=== PATIENT | female | born 1930 | race Caucasian/White ===

== ENCOUNTER 2016-09-16 09:01 | Emergency (ER) | payer OTHER ==
[~2016-09-16] VITALS: Ht 152.4 cm; Wt 52.2 kg
[2016-09-16 09:01] VITALS: BP 116/65; PULSE 84; RESP 19; TEMP 97.4; O2SAT 96
--- NOTE | 2016-09-16 09:06 | NUR ---
Patient triaged and placed in waiting room. VSS and patient appears in no acute distress at this time. Accompanied by SON, awaiting available bed, and MD notified of need for MSE.
--- NOTE | 2016-09-16 10:05 | NUR ---
BROUGHT BACK TO BED #6 AND REPORT GIVEN TO GARCIA
--- NOTE | 2016-09-16 10:10 | NUR ---
ER at bedside examining patient.
--- NOTE | 2016-09-16 10:15 | NUR ---
Pt reports R arm pain s/p mech fall no syncope. Pt denies head or neck pain.Pt has decreased ROM,however pt able to move hand and fingers w/o loss sensation. Pt h/o osteoporosis and parkinson's. Pt AAOx4.
--- NOTE | 2016-09-16 10:30 | NUR ---
Pt tolerated Shoulder immobilizer.
[2016-09-16 10:45] VITALS: BP 116/65; PULSE 84; RESP 19; TEMP 97.4
[2016-09-16] MEDS ORDERED: IBUPROFEN 400 MG TABLET PO ONE (10:45)
--- NOTE | 2016-09-16 10:45 | NUR ---
Patient given written and verbal discharge instructions and verbalizes understanding. ER MD discussed with patient the results and treatment provided. Given copies of tests performed in ER. Patient in stable condition. ID arm band removed. Rx of norco given. Patient educated on pain management and to follow up with PMD. Pain Scale 3. Opportunity for questions provided and answered.
[2016-09-16 15:47] VITALS: O2SAT 96
== END 2016-09-16 10:45 | disposition home or self-care (01) ==
LOC: SED 09:01
DX: S42.291A Other displaced fracture of upper end of right humerus, initial encounter for closed fracture (principal); M81.0 Age-related osteoporosis without current pathological fracture; G20 Parkinson's disease; Z88.5 Allergy status to narcotic agent; W10.1XXA Fall (on)(from) sidewalk curb, initial encounter; Y93.89 Activity, other specified; Y92.89 Other specified places as the place of occurrence of the external cause; Y99.8 Other external cause status
CPT/HCPCS: 73030; 99284

== ENCOUNTER 2017-06-01 12:40 | Inpatient (IN) | payer OTHER ==
[~2017-06-01] VITALS: Ht 147.3 cm; Wt 47.2 kg
[2017-06-01 12:40] VITALS: BP_SYST 148
[2017-06-01] MEDS ORDERED: KETOROLAC TROMETHAMINE 30 MG VIAL IVP ONE (12:45)
[2017-06-01 13:02] LABS: BASOPHILS % (AUTO) 0.2 % (0.0-2.0); EOSINOPHILS % (AUTO) 0.3 % (0.0-4.0); HEMATOCRIT 34.3 % (36-48); HEMOGLOBIN 11.7 g/dL (12.0-16.0); LYMPHOCYTES # (AUTO) 0.7 K/uL (1.0-5.5); LYMPHOCYTES % (AUTO) 14.3 % (20.5-51.5); MEAN CORPUSCULAR HEMOGLOBIN 32 pg (27-31); MEAN CORPUSCULAR HGB CONC 34 % (32-36); MEAN CORPUSCULAR VOLUME 95 fL (79.0-98.0); MONOCYTES # (AUTO) 0.2 K/uL (0.0-1.0); MONOCYTES % (AUTO) 5.3 % (1.7-9.3); NEUTROPHILS # (AUTO) 3.7 K/uL (1.8-7.7); NEUTROPHILS % (AUTO) 79.9 % (40.0-70.0); PLATELET COUNT (AUTO) 187 K/uL (130-430); RED BLOOD CELL COUNT(AUTO) 3.61 MIL/uL (4.2-6.2); RED CELL DISTRIBUTION WIDTH 11.9 % (9.0-15.0); WHITE BLOOD COUNT (AUTO) 4.6 K/uL (4.8-10.8)
[2017-06-01] MEDS ORDERED: HYDR-3924 PO (13:09)
[2017-06-01] MEDS ORDERED: ALEN10TA6 PO (13:09)
[2017-06-01] MEDS ORDERED: CARB-61 PO (13:09)
[2017-06-01] MEDS ORDERED: ONDANSETRON HCL 4 MG/2 ML VIAL IVP ONE (13:30)
[2017-06-01] MEDS ORDERED: HYDROmorphone 1 MG INJ. 1 MG/ML AMPUL IVP ONE ×2 (13:30→13:45)
[2017-06-01 13:49] LABS: PROTHROMBIN TIME 10.4 SECS (9.5-12.5)
[2017-06-01 13:50] LABS: ALANINE AMINOTRANSFERASE 13 U/L (12-78); ALBUMIN 3.6 g/dL (3.4-4.8); ANION GAP 8 (5-15); ASPARTATE AMINOTRANSFERASE 19 U/L (10-37); CALCIUM 8.5 mg/dL (8.4-11.0); CHLORIDE 102 mmol/L (98-107); CREATININE 0.88 mg/dL (0.55-1.30); GLUCOSE 244 mg/dL (70-99); SODIUM SERUM 136 mmol/L (136-145); TOTAL BILIRUBIN 0.6 mg/dL (0.0-1.0); UREA NITROGEN, BLOOD 21 mg/dL (8-21)
[2017-06-01] MEDS ORDERED: HYDROmorphone 1 MG INJ. 1 MG/ML AMPUL IM PRN ×2 (14:30→16:45)
[2017-06-01] MEDS ORDERED: D5NS 500 ML IV ONE (14:30)
[2017-06-01 14:58] VITALS: BP_SYST 145
[2017-06-01] MEDS: CARBIDOPA/LEVODOPA 25/100 MG TABLET PO SCH ×2 (16:07→21:00)
[2017-06-01] MEDS ORDERED: ONDANSETRON HCL 4 MG/2 ML VIAL IM PRN (16:30)
[2017-06-01] MEDS: LR 1,000 ML IV SCH (18:00)
[2017-06-01] MEDS: HYDROmorphone 1 MG INJ. 1 MG/ML AMPUL IVP PRN (18:44)
[2017-06-01] MEDS ORDERED: ONDANSETRON HCL 4 MG/2 ML VIAL IVP PRN (19:00)
[2017-06-01 20:00] VITALS: BP_SYST 130
[2017-06-01] MEDS: DOCUSATE SODIUM 100 MG CAPSULE PO SCH (21:00)
[2017-06-02] VITALS (8 sets, daily range): BP systolic 110–143
[2017-06-02] MEDS: HYDROmorphone 1 MG INJ. 1 MG/ML AMPUL IVP PRN (02:05)
[2017-06-02] MEDS: LR 1,000 ML IV SCH ×4 (03:27→22:45)
[2017-06-02 06:25] LABS: ANION GAP 6 (5-15); CHLORIDE 102 mmol/L (98-107); CREATININE 0.91 mg/dL (0.55-1.30); GLUCOSE 113 mg/dL (70-99); POTASSIUM 4.2 mmol/L (3.5-5.1); SODIUM SERUM 137 mmol/L (136-145); UREA NITROGEN, BLOOD 22 mg/dL (8-21)
[2017-06-02 06:32] LABS: EOSINOPHILS % (AUTO) 0.1 % (0.0-4.0); HEMATOCRIT 28.2 % (36-48); HEMOGLOBIN 9.6 g/dL (12.0-16.0); LYMPHOCYTES # (AUTO) 0.6 K/uL (1.0-5.5); LYMPHOCYTES % (AUTO) 7.4 % (20.5-51.5); MEAN CORPUSCULAR HEMOGLOBIN 32 pg (27-31); MEAN CORPUSCULAR HGB CONC 34 % (32-36); MEAN CORPUSCULAR VOLUME 95 fL (79.0-98.0); MONOCYTES # (AUTO) 0.8 K/uL (0.0-1.0); MONOCYTES % (AUTO) 10.3 % (1.7-9.3); NEUTROPHILS # (AUTO) 6.8 K/uL (1.8-7.7); NEUTROPHILS % (AUTO) 82.2 % (40.0-70.0); PLATELET COUNT (AUTO) 160 K/uL (130-430); RED BLOOD CELL COUNT(AUTO) 2.97 MIL/uL (4.2-6.2); WHITE BLOOD COUNT (AUTO) 8.2 K/uL (4.8-10.8)
[2017-06-02] MEDS ORDERED: HYDROmorphone 1 MG INJ. 1 MG/ML AMPUL IVP ONE (08:30)
[2017-06-02 09:10] LABS: BILIRUBIN,URINE NEGATIVE (NEGATIVE); BLOOD, URINE NEGATIVE (NEGATIVE); CLARITY/URINE CLEAR (CLEAR); COLOR,URINE YELLOW (YELLOW); GLUCOSE,URINE NEGATIVE (NEGATIVE); KETONES,URINE NEGATIVE (NEGATIVE); LEUKOCYTE ESTERASE ,URINE 3+ (NEGATIVE); NITRITE, URINE NEGATIVE (NEGATIVE); PROTEIN URINE NEGATIVE (NEGATIVE); UROBILINOGEN,URINE 0.2 (0.2-1.0)
[2017-06-02] MEDS: CARBIDOPA/LEVODOPA 25/100 MG TABLET PO SCH ×3 (09:13→21:40)
[2017-06-02] MEDS: DOCUSATE SODIUM 100 MG CAPSULE PO SCH ×2 (09:13→21:00)
[2017-06-02 09:35] LABS: BACTERIA,URINE FEW /HPF (None Seen); MUCUS,URINE None Seen /LPF (None Seen); RBC,URINE 0-3 /HPF (0-3)
[2017-06-02] MEDS ORDERED: HYDROmorphone 1 MG INJ. 1 MG/ML AMPUL IM PRN (12:30)
[2017-06-02] MEDS ORDERED: POLYMYXIN 500,000/BACIT.10,000 UNITS in NS IRR 1 L IR ONE (14:26)
[2017-06-02] MEDS ORDERED: SEVOFLURANE 15 MIN GAS INH ONE (16:04)
[2017-06-02] MEDS ORDERED: ONDANSETRON HCL 4 MG/2 ML VIAL IVP ONE (16:04)
[2017-06-02] MEDS ORDERED: ROPIVACAINE 40 MG/20 ML AMP EP ONE (16:04)
[2017-06-02] MEDS ORDERED: LR 1,000 ML IV.SOLN IV ONE (16:04)
[2017-06-02] MEDS ORDERED: MIDAZOLAM HCL 5 MG/5 ML VIAL IVP ONE (16:04)
[2017-06-02] MEDS ORDERED: KETOROLAC TROMETHAMINE 30 MG VIAL IVP ONE (16:04)
[2017-06-02] MEDS ORDERED: CEFAZOLIN 2 GM IVPB PREMIX 50 ML IV ONE (16:04)
[2017-06-02] MEDS ORDERED: PROPOFOL 200MG/ 20ML VIAL (DIPRIVAN) IV ONE (16:04)
[2017-06-02] MEDS ORDERED: fentaNYL CITRATE/PF 100 MCG/2 ML AMP IVP ONE (16:04)
[2017-06-02] MEDS ORDERED: LR 1,000 ML IV SCH (17:10)
[2017-06-02] MEDS ORDERED: ePHEDrine sulfate 50 MG/ML VIAL IVP PRN (17:15)
[2017-06-02] MEDS ORDERED: ONDANSETRON HCL 4 MG/2 ML VIAL IVP PRN ×2 (17:15→18:30)
[2017-06-02] MEDS ORDERED: MEPERIDINE HCL/PF 25 MG/ML DISP.SYRIN IVP PRN ×2 (17:15)
[2017-06-02] MEDS ORDERED: SENNOSIDES 8.6 MG TABLET PO PRN (18:30)
[2017-06-02] MEDS ORDERED: ACETAMINOPHEN 325 MG TABLET PO PRN (18:30)
[2017-06-02] MEDS: HYDROmorphone 1 MG INJ. 1 MG/ML AMPUL IV PRN (19:57)
[2017-06-02 20:35] LABS: BASOPHILS % (AUTO) 0.1 % (0.0-2.0); EOSINOPHILS % (AUTO) 0.1 % (0.0-4.0); HEMATOCRIT 27.4 % (36-48); HEMOGLOBIN 9.4 g/dL (12.0-16.0); LYMPHOCYTES # (AUTO) 0.5 K/uL (1.0-5.5); LYMPHOCYTES % (AUTO) 3.6 % (20.5-51.5); MEAN CORPUSCULAR HEMOGLOBIN 33 pg (27-31); MEAN CORPUSCULAR HGB CONC 34 % (32-36); MEAN CORPUSCULAR VOLUME 95 fL (79.0-98.0); MONOCYTES # (AUTO) 0.2 K/uL (0.0-1.0); MONOCYTES % (AUTO) 1.5 % (1.7-9.3); NEUTROPHILS % (AUTO) 94.7 % (40.0-70.0); PLATELET COUNT (AUTO) 157 K/uL (130-430); RED BLOOD CELL COUNT(AUTO) 2.89 MIL/uL (4.2-6.2); RED CELL DISTRIBUTION WIDTH 12.1 % (9.0-15.0); WHITE BLOOD COUNT (AUTO) 13.7 K/uL (4.8-10.8)
[2017-06-02 20:50] LABS: ANION GAP 7 (5-15); CALCIUM 7.4 mg/dL (8.4-11.0); CHLORIDE 102 mmol/L (98-107); CREATININE 0.84 mg/dL (0.55-1.30); GLUCOSE 163 mg/dL (70-99); SODIUM SERUM 137 mmol/L (136-145); UREA NITROGEN, BLOOD 18 mg/dL (8-21)
[2017-06-02] MEDS: DIPHENHYDRAMINE HCL 25 MG CAPSULE PO PRN (21:40)
[2017-06-02] MEDS: CEFAZOLIN 1 GM IVPB PREMIX 50 ML IV SCH (21:48)
[2017-06-03] VITALS: BP_SYST 111
[2017-06-03 04:00] VITALS: BP_SYST 118
[2017-06-03] MEDS: CEFAZOLIN 1 GM IVPB PREMIX 50 ML IV SCH (05:05)
[2017-06-03 06:54] LABS: BASOPHILS % (AUTO) 0.1 % (0.0-2.0); HEMATOCRIT 23.9 % (36-48); HEMOGLOBIN 8.1 g/dL (12.0-16.0); LYMPHOCYTES # (AUTO) 0.5 K/uL (1.0-5.5); LYMPHOCYTES % (AUTO) 5.8 % (20.5-51.5); MEAN CORPUSCULAR HEMOGLOBIN 32 pg (27-31); MEAN CORPUSCULAR HGB CONC 34 % (32-36); MEAN CORPUSCULAR VOLUME 95 fL (79.0-98.0); MONOCYTES # (AUTO) 0.8 K/uL (0.0-1.0); MONOCYTES % (AUTO) 9.4 % (1.7-9.3); NEUTROPHILS # (AUTO) 7.7 K/uL (1.8-7.7); NEUTROPHILS % (AUTO) 84.7 % (40.0-70.0); PLATELET COUNT (AUTO) 149 K/uL (130-430); RED BLOOD CELL COUNT(AUTO) 2.53 MIL/uL (4.2-6.2); RED CELL DISTRIBUTION WIDTH 12.1 % (9.0-15.0)
[2017-06-03 07:25] LABS: ANION GAP 7 (5-15); CALCIUM 7.4 mg/dL (8.4-11.0); CHLORIDE 101 mmol/L (98-107); CREATININE 0.91 mg/dL (0.55-1.30); GLUCOSE 134 mg/dL (70-99); POTASSIUM 4.4 mmol/L (3.5-5.1); SODIUM SERUM 137 mmol/L (136-145); UREA NITROGEN, BLOOD 19 mg/dL (8-21)
[2017-06-03] MEDS: LR 1,000 ML IV SCH ×3 (07:45→18:45)
[2017-06-03] MEDS: HYDROmorphone 1 MG INJ. 1 MG/ML AMPUL IV PRN (08:40)
[2017-06-03 09:41] VITALS: BP_SYST 112
[2017-06-03] MEDS: DOCUSATE SODIUM 100 MG CAPSULE PO SCH ×2 (09:50→20:29)
[2017-06-03] MEDS: CARBIDOPA/LEVODOPA 25/100 MG TABLET PO SCH ×3 (09:50→20:29)
[2017-06-03] MEDS: DIPHENHYDRAMINE HCL 25 MG CAPSULE PO PRN (11:00)
[2017-06-03 12:19] VITALS: BP_SYST 114
[2017-06-03 16:22] VITALS: BP_SYST 108
[2017-06-03 20:00] VITALS: BP_SYST 145
[2017-06-04] VITALS (9 sets, daily range): BP systolic 118–159
[2017-06-04] MEDS: LR 1,000 ML IV SCH (05:00)
[2017-06-04 06:36] LABS: BASOPHILS % (AUTO) 0.1 % (0.0-2.0); EOSINOPHILS % (AUTO) 0.7 % (0.0-4.0); LYMPHOCYTES # (AUTO) 0.7 K/uL (1.0-5.5); LYMPHOCYTES % (AUTO) 12.7 % (20.5-51.5); MEAN CORPUSCULAR HEMOGLOBIN 33 pg (27-31); MEAN CORPUSCULAR HGB CONC 35 % (32-36); MEAN CORPUSCULAR VOLUME 95 fL (79.0-98.0); MONOCYTES # (AUTO) 0.6 K/uL (0.0-1.0); MONOCYTES % (AUTO) 11.5 % (1.7-9.3); NEUTROPHILS # (AUTO) 4.1 K/uL (1.8-7.7); PLATELET COUNT (AUTO) 110 K/uL (130-430); RED CELL DISTRIBUTION WIDTH 12.2 % (9.0-15.0); WHITE BLOOD COUNT (AUTO) 5.4 K/uL (4.8-10.8)
[2017-06-04 07:00] LABS: ANION GAP 5 (5-15); CALCIUM 7.4 mg/dL (8.4-11.0); CHLORIDE 104 mmol/L (98-107); CREATININE 0.73 mg/dL (0.55-1.30); GLUCOSE 112 mg/dL (70-99); POTASSIUM 3.9 mmol/L (3.5-5.1); SODIUM SERUM 137 mmol/L (136-145); UREA NITROGEN, BLOOD 19 mg/dL (8-21)
[2017-06-04 07:32] LABS: RED BLOOD CELL COUNT(AUTO) 1.98 MIL/uL (4.2-6.2)
[2017-06-04 07:34] LABS: HEMATOCRIT 18.7 % (36-48); HEMOGLOBIN 6.5 g/dL (12.0-16.0)
[2017-06-04] MEDS: CARBIDOPA/LEVODOPA 25/100 MG TABLET PO SCH ×3 (09:48→20:30)
[2017-06-04] MEDS: DOCUSATE SODIUM 100 MG CAPSULE PO SCH ×2 (09:48→20:30)
[2017-06-04] MEDS ORDERED: PSYLLIUM HUSK 1 PKT PACKET PO ONE (10:45)
[2017-06-04] MEDS ORDERED: FERROUS SULFATE 325 MG TABLET.DR PO ONE (10:45)
[2017-06-04] MEDS: PSYLLIUM HUSK 1 PKT PACKET PO SCH (20:30)
[2017-06-04] MEDS: FERROUS SULFATE 325 MG TABLET.DR PO SCH (20:30)
[2017-06-04 20:54] LABS: BASOPHILS # (AUTO) 0.1 K/uL (0.0-0.2); BASOPHILS % (AUTO) 1.6 % (0.0-2.0); EOSINOPHILS # (AUTO) 0.1 K/uL (0.0-0.4); EOSINOPHILS % (AUTO) 0.7 % (0.0-4.0); HEMATOCRIT 28.6 % (36-48); HEMOGLOBIN 9.6 g/dL (12.0-16.0); LYMPHOCYTES # (AUTO) 0.6 K/uL (1.0-5.5); MEAN CORPUSCULAR HEMOGLOBIN 32 pg (27-31); MEAN CORPUSCULAR HGB CONC 34 % (32-36); MEAN CORPUSCULAR VOLUME 94 fL (79.0-98.0); MONOCYTES # (AUTO) 0.7 K/uL (0.0-1.0); MONOCYTES % (AUTO) 9.3 % (1.7-9.3); NEUTROPHILS # (AUTO) 6.2 K/uL (1.8-7.7); NEUTROPHILS % (AUTO) 80.4 % (40.0-70.0); PLATELET COUNT (AUTO) 140 K/uL (130-430); RED BLOOD CELL COUNT(AUTO) 3.06 MIL/uL (4.2-6.2); RED CELL DISTRIBUTION WIDTH 12.6 % (9.0-15.0); WHITE BLOOD COUNT (AUTO) 7.7 K/uL (4.8-10.8)
[2017-06-05 02:39] VITALS: BP_SYST 142
[2017-06-05 06:20] LABS: BASOPHILS % (AUTO) 0.3 % (0.0-2.0); EOSINOPHILS % (AUTO) 0.6 % (0.0-4.0); HEMOGLOBIN 9.2 g/dL (12.0-16.0); LYMPHOCYTES # (AUTO) 0.7 K/uL (1.0-5.5); LYMPHOCYTES % (AUTO) 10.5 % (20.5-51.5); MEAN CORPUSCULAR HEMOGLOBIN 32 pg (27-31); MEAN CORPUSCULAR HGB CONC 34 % (32-36); MEAN CORPUSCULAR VOLUME 94 fL (79.0-98.0); MONOCYTES # (AUTO) 0.7 K/uL (0.0-1.0); MONOCYTES % (AUTO) 10.1 % (1.7-9.3); NEUTROPHILS # (AUTO) 5.5 K/uL (1.8-7.7); NEUTROPHILS % (AUTO) 78.5 % (40.0-70.0); PLATELET COUNT (AUTO) 134 K/uL (130-430); RED BLOOD CELL COUNT(AUTO) 2.88 MIL/uL (4.2-6.2); WHITE BLOOD COUNT (AUTO) 6.9 K/uL (4.8-10.8)
[2017-06-05 06:49] LABS: ANION GAP 9 (5-15); CALCIUM 7.9 mg/dL (8.4-11.0); CHLORIDE 101 mmol/L (98-107); GLUCOSE 97 mg/dL (70-99); POTASSIUM 3.7 mmol/L (3.5-5.1); SODIUM SERUM 136 mmol/L (136-145); UREA NITROGEN, BLOOD 14 mg/dL (8-21)
[2017-06-05 08:00] VITALS: BP_SYST 128
[2017-06-05] MEDS: FERROUS SULFATE 325 MG TABLET.DR PO SCH ×2 (09:00→09:47)
[2017-06-05] MEDS: PSYLLIUM HUSK 1 PKT PACKET PO SCH (09:44)
[2017-06-05] MEDS: DOCUSATE SODIUM 100 MG CAPSULE PO SCH (09:47)
[2017-06-05] MEDS: CARBIDOPA/LEVODOPA 25/100 MG TABLET PO SCH (09:47)
[2017-06-05] MEDS ORDERED: DOCU-144 PO (10:30)
[2017-06-05] MEDS ORDERED: BISACODYL 10 MG/SUPPOSITORY RC PRN (10:30)
[2017-06-05 11:38] VITALS: BP_SYST 140
[2017-06-05 12:33] VITALS: BP_SYST 140
== END 2017-06-05 14:40 | DRG 481 ==
LOC: SED 12:40 → SMU 14:27
PROVIDERS: ADMIT Internal Medicine; ATTEND Internal Medicine
PROC: 0QS604Z Reposition Right Upper Femur with Internal Fixation Device, Open Approach (ICD-10-PCS; principal; 2017-06-02 16:30)
PROC: 30233N1 Transfusion of Nonautologous Red Blood Cells into Peripheral Vein, Percutaneous Approach (ICD-10-PCS; 2017-06-04)
DX: M80.051A Age-related osteoporosis with current pathological fracture, right femur, initial encounter for fracture (principal); D62 Acute posthemorrhagic anemia; G20 Parkinson's disease; M19.90 Unspecified osteoarthritis, unspecified site; W07.XXXA Fall from chair, initial encounter; Z60.2 Problems related to living alone; M81.0 Age-related osteoporosis without current pathological fracture; Z82.49 Family history of ischemic heart disease and other diseases of the circulatory system; Y93.89 Activity, other specified; Y92.89 Other specified places as the place of occurrence of the external cause; Y99.8 Other external cause status; Z88.5 Allergy status to narcotic agent; Z79.899 Other long term (current) drug therapy
CPT/HCPCS: 36415; 71010; 72170-TC; 73502; 76000; 80048; 80053; 81000-TC; 83880; 84484; 85025; 85610-TC; 85730-TC; 86886; 86900; 86901; 86920; 87081; 87086; 93005; 94010; 96374; 96375; 97110-GP; 97116-GP; 97530-GP; 99285; C1713; C1769; J0690; J1170; J1885; J2250; J2405; J2704; J2795; J3010; J7042; J7050; J7120; P9021; Q0163

== ENCOUNTER 2019-03-25 10:27 | Emergency (ER) | payer OTHER ==
[~2019-03-25] VITALS: Ht 149.9 cm; Wt 49.9 kg
[~2019-03-25 10:27] MED LIST: ALEN10TA6 PO; CARB-61 PO; DOCU-144 PO; HYDR-3924 PO
[2019-03-25 10:40] VITALS: BP_SYST 152
--- NOTE | 2019-03-25 10:40 | NUR ---
Patient to ER bed 8 to gown for evaluation. Side rails up.
--- NOTE | 2019-03-25 10:53 | NUR ---
ER Dr. ABREU at bedside examining patient.
[2019-03-25] MEDS ORDERED: NACL 0.9% 1,000 ML IV ONE (10:57)
[2019-03-25] MEDS ORDERED: KETOROLAC TROMETHAMINE 30 MG VIAL IVP ONE (11:00)
--- NOTE | 2019-03-25 11:05 | NUR ---
PATIENT CAME IN COMPLAINING OF PAIN IN RIGHT HIP/PELVIS FOR ABOUT A WEEK NOW. PATIENT STATES SHE WAS EXERCISING WHEN SHE STARTED TO FEEL PAIN. PATIENT STATES PAIN PROGRESSIVLY GETTING WORST. PATIENT STATES SHE TOOK MEDICINE FOR PAIN BUT DIDNT HELP. PATIENT STATES PAIN WORST WHEN SHE HAS TO MOVE. PATIENT COMPLAINING OF 2/10 PAIN AT THE MOMENT BUT CAN GO UP TO 7/10. PATIENT DENIES SOB, NASUEA, AND VOMITING. PATIENT IS ALERT AND ORIENTED X4.
--- NOTE | 2019-03-25 11:10 | NUR ---
# 20 gauge angiocath placed to RIGHT AC. Use of asceptic technique. Opsite placed over site. Blood return noted. Blood for lab drawn from site. Flushed with 10 cc of normal saline. No evidence of infiltration noted. Patient tolerated well.
--- NOTE | 2019-03-25 11:11 | NUR ---
PATIENT LEFT TO CT VIA GURNEY IN STABLE CONDITION.
--- NOTE | 2019-03-25 11:25 | NUR ---
Back from CT, scan not completed. Pt unable to tolerate supine position d/t pain. MD notified. Orders recieved.
[2019-03-25 11:30] LABS: BASOPHILS % (AUTO) 0.2 % (0.0-2.0); EOSINOPHILS % (AUTO) 0.6 % (0.0-4.0); HEMATOCRIT 34.9 % (36-48); HEMOGLOBIN 12.1 g/dL (12.0-16.0); LYMPHOCYTES # (AUTO) 0.7 K/uL (1.0-5.5); LYMPHOCYTES % (AUTO) 11.9 % (20.5-51.5); MEAN CORPUSCULAR HEMOGLOBIN 33 pg (27-31); MEAN CORPUSCULAR HGB CONC 35 % (32-36); MEAN CORPUSCULAR VOLUME 96 fL (79.0-98.0); MONOCYTES # (AUTO) 0.5 K/uL (0.0-1.0); MONOCYTES % (AUTO) 7.8 % (1.7-9.3); NEUTROPHILS # (AUTO) 4.7 K/uL (1.8-7.7); NEUTROPHILS % (AUTO) 79.5 % (40.0-70.0); PLATELET COUNT (AUTO) 183 K/uL (130-430); RED BLOOD CELL COUNT(AUTO) 3.64 MIL/uL (4.2-6.2); RED CELL DISTRIBUTION WIDTH 12.5 % (9.0-15.0); WHITE BLOOD COUNT (AUTO) 5.9 K/uL (4.8-10.8)
[2019-03-25] MEDS ORDERED: LORazepam 2 MG/ML VIAL (FOR ER USE) IVP ONE (11:30)
[2019-03-25 11:36] LABS: ANION GAP 8 (5-15); CALCIUM 9.3 mg/dL (8.4-11.0); CHLORIDE 101 mmol/L (98-107); CREATININE 1.01 mg/dL (0.55-1.30); GLUCOSE 103 mg/dL (70-99); POTASSIUM 4.2 mmol/L (3.5-5.1); SODIUM SERUM 139 mmol/L (136-145); UREA NITROGEN, BLOOD 26 mg/dL (8-21)
[2019-03-25 11:41] LABS: ALANINE AMINOTRANSFERASE 23 U/L (12-78); ALBUMIN 3.7 g/dL (3.4-4.8); ASPARTATE AMINOTRANSFERASE 22 U/L (10-37); TOTAL BILIRUBIN 0.6 mg/dL (0.0-1.0)
--- NOTE | 2019-03-25 11:46 | NUR ---
Medicated per MD orders. IVF infusing to RAC with no s/s of infiltration at this time. Will cont to monitor
--- NOTE | 2019-03-25 12:40 | NUR ---
PATIENT BACK FROM CT IN STABLE CONDITION.
[2019-03-25 13:56] VITALS: BP_SYST 147
--- NOTE | 2019-03-25 13:56 | NUR ---
Patient given written and verbal discharge instructions and verbalizes understanding. ER MD discussed with patient the results and treatment provided. Patient in stable condition. ID arm band removed. IV catheter removed intact and dressing applied, no active bleeding. Rx of lactulose and mineral oil given. Patient educated on pain management and to follow up with PMD. Pain Scale 2/10 tolerable. Opportunity for questions provided and answered. Medication side effect fact sheet provided.
== END 2019-03-25 13:56 | disposition home or self-care (01) ==
LOC: SED 10:27
DX: R10.32 Left lower quadrant pain (principal); Z88.5 Allergy status to narcotic agent; Z79.899 Other long term (current) drug therapy
CPT/HCPCS: 36415; 74176; 80053; 85025; 87040; 96374; 96375; 99284; J1885; J2060; J7030